=== PATIENT | male | born 2000 | race Hispanic/Latino ===

== ENCOUNTER 2019-04-01 21:31 | Emergency (ER) | payer OTHER ==
[2019-04-01 22:12] VITALS: BP 128/77
== END 2019-04-01 22:12 | disposition home or self-care (01) | DRG 552 ==
LOC: ED 21:31
DX: M54.2 Cervicalgia (principal); R20.0 Anesthesia of skin; R51 Headache; M25.562 Pain in left knee; M25.561 Pain in right knee; V49.40XA Driver injured in collision with unspecified motor vehicles in traffic accident, initial encounter

== ENCOUNTER 2021-03-14 10:45 | Emergency (ER) | payer SELFPAY ==
[~2021-03-14] VITALS: Ht 177.8 cm; Wt 60.0 kg
[2021-03-14 14:10] LABS: URINE BILIRUBIN - DIPSTICK NEGATIVE (NEGATIVE); URINE BLOOD DIPSTICK NEGATIVE (NEGATIVE); URINE COLOR YELLOW; URINE GLUCOSE - DIPSTICK NEGATIVE (NEGATIVE); URINE KETONE NEGATIVE (NEGATIVE); URINE LEUK ESTERASE NEGATIVE (NEGATIVE); URINE PROTEIN - DIPSTICK NEGATIVE (NEG-TRACE); URINE SPECIFIC GRAVITY 1.015; URINE UROBILINOGEN - DIPSTICK 0.2 E.U./dL (0.2)
[2021-03-14 14:13] LABS: HEMATOCRIT 40.6 % (39.0-50.0); HEMOGLOBIN 13.8 g/dl (14.0-18.0); IMMATURE GRANULOCYTES 0.2 % (0.0-5.0); MEAN CORPUSCULAR HGB 29.8 pG CALC (26.0-32.0); NEUT# 2.84 thou/uL (1.82-7.42); RED BLOOD COUNT 4.63 mill/uL (4.70-6.10); RED CELL DISTRI WIDTH 12.2 % (11.5-15.5)
[2021-03-14 14:24] LABS: URINE NITRITE - DIPSTICK NEGATIVE (Negative)
[2021-03-14 14:45] LABS: BILIRUBIN, TOTAL 0.7 mg/dL (0.0-1.4); BUN 14 mg/dL (9-20); BUN/CREATININE RATIO 17 (12-20 (CALC)); CHLORIDE 103 mmol/l (95-108); CREATININE 0.8 mg/dL (0.7-1.3); GFR > 60 ML/MIN (>=60 (CALC)); GFR FOR AFR.AMER. > 60 ML/MIN (>=60 (CALC)); LIPASE 72 u/l (23-300); POTASSIUM 3.9 mmol/l (3.5-5.1); SGOT/AST 33 u/l (17-59); SODIUM 139 mmol/l (137-146); TOTAL PROTEIN 6.9 g/dL (6.3-8.2)
[2021-03-14 14:48] LABS: ALKALINE PHOSPHATASE 52 u/l (38-126); ANION GAP 7 (6-22 (CALC)); CARBON DIOXIDE 33 mmol/l (22-30)
[2021-03-14 14:56] LABS: MEAN CELL VOLUME 87.7 fL CALC (80.0-100.0)
[2021-03-14 15:38] VITALS: BP 114/64
== END 2021-03-14 15:38 | disposition home or self-care (01) | DRG 392 ==
LOC: ED 10:45
PROVIDERS: Family Medicine
DX: R10.32 Left lower quadrant pain (principal)
CPT/HCPCS: Q9967

== ENCOUNTER 2021-05-29 07:47 | Emergency (ER) | payer MEDICAID ==
[~2021-05-29] VITALS: Ht 177.8 cm; Wt 57.0 kg
[2021-05-29] VITALS (9 sets, daily range): BP systolic 108–132; BP diastolic 61–82
[2021-05-29 08:27] LABS: HEMATOCRIT 44.8 % (39.0-50.0); HEMOGLOBIN 15.5 g/dl (14.0-18.0); IMMATURE GRANULOCYTES 0.2 % (0.0-5.0); MEAN CELL VOLUME 86.5 fL CALC (80.0-100.0); MEAN CORPUSCULAR HGB 29.9 pG CALC (26.0-32.0); MEAN CORPUSCULAR HGB CONC 34.6 g/dL CAL (32.0-36.0); NEUT# 3.07 thou/uL (1.82-7.42); RED BLOOD COUNT 5.18 mill/uL (4.70-6.10); RED CELL DISTRI WIDTH 11.9 % (11.5-15.5)
[2021-05-29 08:59] LABS: ALBUMIN 4.1 g/dL (3.2-5.0); ALKALINE PHOSPHATASE 61 u/l (38-126); ANION GAP 12 (6-22 (CALC)); BUN 11 mg/dL (9-20); BUN/CREATININE RATIO 14 (12-20 (CALC)); CARBON DIOXIDE 29 mmol/l (22-30); CHLORIDE 100 mmol/l (95-108); CREATININE 0.8 mg/dL (0.7-1.3); GFR > 60 ML/MIN (>=60 (CALC)); GFR FOR AFR.AMER. > 60 ML/MIN (>=60 (CALC)); POTASSIUM 3.9 mmol/l (3.5-5.1); SGOT/AST 36 u/l (17-59); SODIUM 137 mmol/l (137-146); TOTAL PROTEIN 6.8 g/dL (6.3-8.2)
[2021-05-29 09:07] LABS: BILIRUBIN, TOTAL 0.4 mg/dL (0.0-1.4)
[2021-05-29] MEDS ORDERED: PREDNISONE20 MG PO (10:13)
[2021-05-29] MEDS ORDERED: PROAIR HFA108 MCG/AC IN (10:13)
== END 2021-05-29 10:31 | disposition home or self-care (01) ==
LOC: ED 07:47
PROVIDERS: Internal Medicine
DX: R06.02 Shortness of breath (principal)

== ENCOUNTER 2021-07-14 21:56 | Emergency (ER) | payer OTHER ==
[~2021-07-14] VITALS: Ht 177.8 cm; Wt 56.0 kg
[~2021-07-14 21:56] MED LIST: PREDNISONE20 MG PO; PROAIR HFA108 MCG/AC IN
[2021-07-14 22:08] VITALS: BP 105/66
[2021-07-14 22:30] VITALS: BP 109/58
[2021-07-14 23:00] VITALS: BP 104/47
[2021-07-14] MEDS ORDERED: AMOXICILLIN500 MG PO (23:05)
[2021-07-14] MEDS ORDERED: CLARITIN10 M2 PO (23:05)
[2021-07-14 23:12] VITALS: BP 104/47
== END 2021-07-14 23:12 | disposition home or self-care (01) ==
LOC: ED 21:56
DX: J02.9 Acute pharyngitis, unspecified (principal); Z20.822 Contact with and (suspected) exposure to COVID-19

== ENCOUNTER 2023-09-30 06:47 | Emergency (ER) | payer OTHER ==
[~2023-09-30] VITALS: Ht 177.8 cm; Wt 56.8 kg
[~2023-09-30 06:47] MED LIST changes: +AMOXICILLIN500 MG PO; +BENADRYL25 M1 PO; +CLARITIN10 M2 PO; +VISTARIL25 MG PO
[2023-09-30] MEDS ORDERED: FLOXIN OTIC0.3 % AS (07:36)
[2023-09-30] MEDS ORDERED: AMOX/K CLAV875 M1 PO (07:36)
[2023-09-30 07:55] VITALS: BP 113/70
== END 2023-09-30 07:55 | disposition home or self-care (01) | DRG 156 ==
LOC: ED 06:47
DX: S09.22XA Traumatic rupture of left ear drum, initial encounter (principal); W16.112A Fall into natural body of water striking water surface causing other injury, initial encounter; Y93.16 Activity, rowing, canoeing, kayaking, rafting and tubing; Y92.828 Other wilderness area as the place of occurrence of the external cause